=== PATIENT | female | born 1990 | race Caucasian/White ===

== ENCOUNTER 2022-05-15 10:38 | Inpatient (IN) | payer BC ==
[2022-05-15] MEDS ORDERED: Lactated Ringers 1,000 ML IV ONE (11:18)
[2022-05-15] MEDS ORDERED: Penicillin G Potassium 5 MILLUNITS in Sodium Chloride 0.9% 100 ML IV ONE (11:18)
[2022-05-15] MEDS ORDERED: Tranexamic Acid 1,000 MG in Sodium Chloride 0.9% 100 ML IV PRN (11:18)
[2022-05-15] MEDS ORDERED: Methylergonovine 0.2 MG/1 ML Amp IM PRN (11:18)
[2022-05-15] MEDS ORDERED: Carboprost Tromethamine 250 MCG/1 ML Amp IM PRN (11:18)
[2022-05-15] MEDS ORDERED: Lidocaine 1% 30 ML SDV INJECT PRN (11:18)
[2022-05-15] MEDS ORDERED: Acetaminophen 325 MG Tab PO PRN (11:18)
[2022-05-15] MEDS ORDERED: Nalbuphine 20 MG/1 ML Amp IM PRN (11:18)
[2022-05-15] MEDS ORDERED: Misoprostol 400 MCG (4 X 100 MCG TAB) RECTAL PRN (11:18)
[2022-05-15] MEDS ORDERED: Ondansetron 4 MG/2 ML SDV IVPUSH PRN (11:18)
[2022-05-15] MEDS ORDERED: Terbutaline 1 MG/ML SDV SUBCUT ONE (11:18)
[2022-05-15] MEDS ORDERED: Sodium Chloride 0.9% 10 ML Syringe FLUSH PRN (11:23)
[2022-05-15] MEDS ORDERED: Oxytocin/Normal Saline 30 UNIT/500 ML BAG IV SCH ×2 (11:30→16:00)
[2022-05-15] MEDS ORDERED: Lactated Ringers 1,000 ML IV SCH (11:30)
[2022-05-15] MEDS ORDERED: Betamethasone Acetate/Betamethasone Sod Phosphate 30 MG/5 ML MDV IM SCH (11:45)
[2022-05-15] MEDS: Penicillin G Potassium 3 MILLUNITS in Sodium Chloride 0.9% 100 ML IV SCH ×3 (15:42→23:42)
[2022-05-16] MEDS ORDERED: Benzocaine/Menthol 20%-0.5% Spray 78 GM Cannister TOP PRN (00:57)
[2022-05-16] MEDS ORDERED: Oxytocin 10 Units/1 ML SDV IM PRN (00:57)
[2022-05-16] MEDS ORDERED: Misoprostol 400 MCG (4 X 100 MCG TAB) RECTAL PRN (00:57)
[2022-05-16] MEDS ORDERED: Tranexamic Acid 1,000 MG in Sodium Chloride 0.9% 100 ML IV PRN (00:57)
[2022-05-16] MEDS ORDERED: Acetaminophen 325 MG Tab PO PRN (00:57)
[2022-05-16] MEDS ORDERED: Carboprost Tromethamine 250 MCG/1 ML Amp IM PRN (00:57)
[2022-05-16] MEDS ORDERED: Simethicone 80 MG Tab.Chew PO PRN (00:57)
[2022-05-16] MEDS: Prenatal Multivitamin with Calcium/Folic Acid/Iron Tab PO SCH (08:27)
[2022-05-16] MEDS: Docusate Sodium 100 MG Cap PO PRN (08:27)
[2022-05-16] MEDS: Ferrous Sulfate 325 MG Tab PO SCH (08:27)
[2022-05-16] MEDS: Ibuprofen 800 MG Tab PO PRN (08:28)
[2022-05-17] MEDS: Ibuprofen 800 MG Tab PO PRN (07:56)
[2022-05-17] MEDS: Docusate Sodium 100 MG Cap PO PRN ×2 (07:57→20:31)
[2022-05-17] MEDS: Ferrous Sulfate 325 MG Tab PO SCH (07:59)
[2022-05-17] MEDS: Prenatal Multivitamin with Calcium/Folic Acid/Iron Tab PO SCH (07:59)
[2022-05-18] MEDS: Ferrous Sulfate 325 MG Tab PO SCH (09:40)
== END 2022-05-18 09:00 | disposition home or self-care (01) | DRG 560 ==
LOC: DL.OBCHECK 10:38 → DL.OB 11:46 → OBSVTOIN 05-16 00:42
PROVIDERS: ADMIT Obstetrics & Gynecology; ATTEND Obstetrics & Gynecology
PROC: 10E0XZZ Delivery of Products of Conception, External Approach (ICD-10-PCS; principal; 2022-05-16)
DX: O60.14X0 Preterm labor third trimester with preterm delivery third trimester, not applicable or unspecified (principal); Z3A.36 36 weeks gestation of pregnancy; Z37.0 Single live birth; O99.02 Anemia complicating childbirth; D64.9 Anemia, unspecified; Z20.822 Contact with and (suspected) exposure to COVID-19; O70.0 First degree perineal laceration during delivery
CPT/HCPCS: 36415; 59025; 59409; 81001; 84112; 85027; 86850; 86870; 86900; 86901; 87081; 87210; A9270-GY; J0702; J2540; J2590; J7120; U0002